=== PATIENT | female | born 2000 | race Caucasian/White ===

== ENCOUNTER 2020-05-24 11:53 | Inpatient (IN) | payer OTHER, SELFPAY ==
[2020-05-24] VITALS (8 sets, daily range): BP systolic 106–172; BP diastolic 70–93; PULSE 90–125; RESP 15–26; TEMP 36.7–36.8; O2SAT 98–100; BMI 33.6
--- NOTE | 2020-05-24 12:32 | CTR_ITS ---
PROCEDURE INFORMATION: Exam: CT Abdomen And Pelvis With Contrast Exam date and time: 05/24/2020 2:25 PM Age: 19 years old Clinical indication: Nausea; Abdominal pain; Patient HX: C/O epigastric pain w diarrhea HX of ulcers; Additional info: Rectal bleeding, epigastric pain, history of bleeding ulcer TECHNIQUE: Imaging protocol: Computed tomography of the abdomen and pelvis with intravenous contrast. Radiation optimization: All CT scans at this facility use at least one of these dose optimization techniques: automated exposure control; mA and/or kV adjustment per patient size (includes targeted exams where dose is matched to clinical indication); or iterative reconstruction. Contrast material: OMNI 300; Contrast volume: 95 ml; Contrast route: INTRAVENOUS (IV); COMPARISON: No relevant prior studies available. RADIATION DOSE METRICS: Total DLP (mGy-cm): 1355.53 FINDINGS: Lungs: There is mild basilar ground-glass opacity compatible with mild pneumonitis versus atelectasis. No lobar consolidation. Liver: There is a diffuse decrease in hepatic parenchymal density, consistent with fatty infiltration. Gallbladder and bile ducts: Normal. No calcified stones. No ductal dilation. Pancreas: Normal. No ductal dilation. Spleen: Normal. No splenomegaly. Adrenals: Normal. No mass. Kidneys and ureters: There is no evidence of hydronephrosis. There is no evidence of renal calcifications. Stomach and bowel: The stomach is mostly collapsed in the wall appears diffusely thickened compatible with lack of distension. No discrete gastric mass, wall thickening or ulceration is identified. There is no evidence of intestinal perforation or obstruction. The wall of the distal colon is thickened but collapsed. This appearance may reflect lack of distention however mild colitis cannot be excluded. The loops of small bowel have an appropriate appearance. Appendix: A normal appendix is identified. Intraperitoneal space: Unremarkable. No free air. No significant fluid collection. Vasculature: Unremarkable.No abdominal aortic aneurysm. Lymph nodes: Unremarkable.No enlarged lymph nodes. Bladder: There is nonspecific bladder wall thickening. This may be related to incomplete distention. Reproductive: Unremarkable as visualized. Bones/joints: Unremarkable. No acute fracture. Soft tissues: Unremarkable. CT/CT abdomen pelvis w con* [id number] IMPRESSION: The wall of the distal colon is thickened but collapsed. This appearance may reflect lack of distention however mild colitis cannot be excluded. No focal gastric wall thickening, gastritis or findings of a gastric ulcer. Radiation Dose CTDIVOL = (mGy): DLP = 1355.53 (mGy-cm)
--- NOTE | 2020-05-24 12:39 | W.ED.NAVMDI ---
HPI - Nausea/Vomiting/Diarrhea General: Chief complaint: Nausea/Vomiting/Diarrhea Stated complaint: bloody stool/abd cramp Time Seen by Provider: 05/24/20 12:05 Source: patient Mode of arrival: ambulatory Limitations: no limitations History of Present Illness: MD elicited complaint: nausea, diarrhea and abdominal pain Onset (ago): hour(s) (8) Description of diarrhea: blood Associated nausea: Yes Associated abdominal pain: Yes Location of pain: Epigastric Pain consistency: constant Severity: severe Quality: stabbing Exacerbating factors: none Relieving factors: none Associated symtoms: Reports dizziness, fatigue and nausea; Denies altered mental status, anxiety, bloating, change in vision, chest pain, cough, diaphoresis, decreased urine output, dysuria, epistaxis, fecal incontinence, fevers/chills, headache(s), anorexia, malaise, myalgias, numbness, palpitations, rash, short of breath, syncope, tenesmus, tinnitus or weakness Review of Systems General: Reports: 10 or more systems reviewed and unremarkable except in HPI and below Const: Reports: fatigue; Denies: malaise or diaphoresis Eyes: Denies: change in vision ENMT: Denies: tinnitus or epistaxis Card: Denies: chest pain, palpitations or syncope Resp: Denies: dyspnea, productive cough or non-productive cough GI: Reports: nausea; Denies: bloating or fecal incontinence : Denies: dysuria Musc: Denies: neck pain, back pain or extremity swelling Skin/Breast: Denies: rash, pruritus or erythema Neuro: Reports: dizziness; Denies: headache(s), numbness in extremities, weakness in extremities or sensory changes Psych: Denies: anxiety Endo: Denies: polyuria, polydipsia or tired all the time PFS ED PFSH: Medical History (Updated 05/24/20 @ 16:38 by Treasure Villalpando MD, [facility] [place]) History of peptic ulcer disease Surgical History (Updated 05/24/20 @ 16:38 by Hakeem Goodson MD) History of esophagogastroduodenoscopy (EGD) History of tonsillectomy Family History (Updated 05/24/20 @ 16:38 by Hakeem Goodson MD) Mother Peptic ulcer disease Female Reproductive History: Date of last menstrual period: 05/10/20 Physical Exam Const: COMMON NORMALS: no acute distress, average body habitus, patient oriented x3, no limitations, healthy appearing, alert and well nourished EXAM LIMITATIONS: no altered mental status HENMT: COMMON NORMALS: normocephalic, atraumatic and moist oral mucous membranes HEAD & SCALP: normocephalic and atraumatic Neck/C-Spine: COMMON NORMALS: no meningeal signs and no JVD Resp: COMMON NORMALS: normal respiratory effort, No retractions, No use of accessory muscles, clear to auscultation bilaterally and percussion normal AUSCULTATION: clear to auscultation bilaterally PERCUSSION: percussion normal Cardio: COMMON NORMALS: no JVD, regular rate, regular rhythm, S1 normal heart sound present, S2 normal heart sound present, No gallops present (Cardio), No clicks present (Cardio), No murmurs present (Cardio), No rub (Cardio) and Peripheral pulses 2+ throughout RATE: regular rate RHYTHM: regular rhythm HEART SOUNDS: S1 normal heart sound present and S2 normal heart sound present PERIPHERAL PULSES: Peripheral pulses 2+ throughout GI: COMMON NORMALS: Normal to inspection, nondistended, normoactive bowel sounds present, Soft to palpation, non-tender, No hepatosplenomegaly present, no masses and no bruits PALPATION: Yes Soft to palpation, Yes Tenderness to palpation present (GI) (epigastric) and Yes No hepatosplenomegaly present Neuro: COMMON NORMALS: patient oriented x3 SENSORIUM/ORIENTATION: Yes alert MENINGEAL SIGNS: Yes no meningeal signs Skin: COMMON NORMALS: no rashes or lesions noted, no wounds, turgor normal, no jaundice, no petechiae and no mottling GENERAL SKIN EXAM: no rashes or lesions noted and turgor normal Course ED course: 19-year-old female patient who present with rectal bleeding. She was given a dose of IV Protonix and some morphine which relieved her pain. Rectal exam showed altered blood on the gloved finger. She is tachycardic in the 120s and with any exertion she jumps up to the 140s. Hemoglobin is normal but I think it safer for her to be admitted overnight and her hemoglobin trended. Reevaluation(s): Reevaluation #1: Discussed her lab and imaging findings with her. Explained that her hemoglobin is normal, CT scan does not show anything acute, however she is significantly tachycardic and I am concerned about that. I would not like to discharge her with the amount of tachycardia she has. Would like to admit her and trend her hemoglobin. She voiced understanding and is in agreement with the plan. Time: 15:50 Consultations: Consultation #1: Dr. Pinto, physician who had scoped her in the past when she had stomach ulcers. Since her hemoglobin is stable she can either be admitted and observed or discharge and follow-up on Tuesday. If she is admitted, even though he is not network operations specialist, he is happy to scope her if there is an urgent need to. Time: 15:55 Consultation #2: Discussed with Dr. Goodson, hospitalist. He kindly accepted the patient to his service. Time: 15:59 Vital Signs: Vital signs: Vital Signs Temperature 98.0 F 05/24/20 11:58 Pulse Rate 124 H 05/24/20 15:30 Respiratory Rate 17 05/24/20 15:30 Blood Pressure 172/92 05/24/20 15:30 Pulse Oximetry 98 05/24/20 14:07 MDM - Nausea/Vomiting/Diarrhea MDM Narrative: Medical decision making narrative: 19-year-old female with GI bleeding. She has a history of bleeding stomach ulcers and has had to have an upper GI endoscopy to fix it. She has epigastric pain and melena stools. She is significantly tachycardic and so she is admitted to trend her hemoglobin since her initial hemoglobin was normal. Medical Records: Attestation: I reviewed the patient's medical records. Lab Data: Attestation: I reviewed the patient's lab results. Labs: Lab Results 05/24/20 05/24/20 05/24/20 Range/Units 12:45 12:45 12:45 WBC 16.1 H (4.5-13.0) 10^3/ uL RBC 3.92 L (4.1-5.3) 10^6/u L Hgb 12.2 (11.5-15.3) g/dL Hct 37.8 (37.0-47.0) % MCV 96.4 (81-99) fL MCH 31.1 (28.0-34.0) pg MCHC 32.3 (30.0-36.0) g/dL RDW 12.9 (12.1-15.1) % Plt Count 271 (130-400) 10^3/c mm MPV 9.9 (7.4-10.4) fL Neut % (Auto) 85.2 % Lymph % (Auto) 9.9 % [place] % (Auto) 3.7 % Eos % (Auto) 0.3 % Baso % (Auto) 0.3 % Neut # (Auto) 13.72 H (1.8-8.0) 10^3/u L Lymph # (Auto) 1.6 (1.5-6.5) 10^3/u L [place] # (Auto) 0.6 (0.2-0.9) 10^3/u L Eos # (Auto) 0.1 (0.0-0.8) 10^3/u L Baso # (Auto) 0.1 (0.0-0.1) 10^3/u L Nucleated RBC % (a uto) 0 % Nucleated RBCs # 0.0 /100WBC PT 14.00 (12.1-14.9) SECO NDS INR 1.05 (0.8-1.2) Sodium 136 (136-145) mmol/L Potassium 4.8 (3.5-5.1) mmol/L Chloride 105 (98-107) mmol/L Carbon Dioxide 25 (22-29) mmol/L Anion Gap 10.8 (5-19) BUN 18 (6-20) mg/dL Creatinine 0.7 (0.5-0.9) mg/dL GFR Calculation 106.7 (90-130) mL/min Glucose 111 (65-115) mg/dL Calculated Osmolal ity 279 L (285-295) mOsm/k g Lactate (0.5-2.2) mmol/L Calcium 8.7 (8.5-10.5) mg/dL Total Bilirubin 0.2 (0.15-1.2) mg/dL AST 15 (0-32) U/L ALT 17 (0-33) U/L Alkaline Phosphata se 80 (35-105) IU/L C-Reactive Protein 8.8 H (0.0-4.9) mg/L Total Protein 6.7 (6.6-8.7) g/dL Albumin 4.1 (3.5-5.2) g/dL Globulin 2.6 (1.3-4.6) g/dL Lipase 11 L (13-60) U/L HCG, Qual (Negative) Blood Type Rho(D) Type Antibody Screen 05/24/20 05/24/20 05/24/20 Range/Units 12:45 12:45 12:45 WBC (4.5-13.0) 10^3/ uL RBC (4.1-5.3) 10^6/u L Hgb (11.5-15.3) g/dL Hct (37.0-47.0) % MCV (81-99) fL MCH (28.0-34.0) pg MCHC (30.0-36.0) g/dL RDW (12.1-15.1) % Plt Count (130-400) 10^3/c mm MPV (7.4-10.4) fL Neut % (Auto) % Lymph % (Auto) % King[place] % (Auto) % Eos % (Auto) % Baso % (Auto) % Neut # (Auto) (1.8-8.0) 10^3/u L Lymph # (Auto) (1.5-6.5) 10^3/u L Kingman # (Auto) (0.2-0.9) 10^3/u L Eos # (Auto) (0.0-0.8) 10^3/u L Baso # (Auto) (0.0-0.1) 10^3/u L Nucleated RBC % (a uto) % Nucleated RBCs # /100WBC PT (12.1-14.9) SECO NDS INR (0.8-1.2) Sodium (136-145) mmol/L Potassium (3.5-5.1) mmol/L Chloride (98-107) mmol/L Carbon Dioxide (22-29) mmol/L Anion Gap (5-19) BUN (6-20) mg/dL Creatinine (0.5-0.9) mg/dL GFR Calculation (90-130) mL/min Glucose (65-115) mg/dL Calculated Osmolal ity (285-295) mOsm/k g Lactate 1.3 (0.5-2.2) mmol/L Calcium (8.5-10.5) mg/dL Total Bilirubin (0.15-1.2) mg/dL AST (0-32) U/L ALT (0-33) U/L Alkaline Phosphata se (35-105) IU/L C-Reactive Protein (0.0-4.9) mg/L Total Protein (6.6-8.7) g/dL Albumin (3.5-5.2) g/dL Globulin (1.3-4.6) g/dL Lipase (13-60) U/L HCG, Qual Negative (Negative) Blood Type O Positive Rho(D) Type Positive Antibody Screen Negative Imaging Data^: CT Abd/Pel: Radiologist's impression: [place] [address] CT Scan Report Signed Patient: Araceli Escobar #: [id number] : 2000Acct#:[id number] Age/Sex: 19 / FADM Date: 05/24/20 Loc: ERRoom/Bed: Attending Dr: Ordering Provider/Ordering MD: Treasure Villalpando MD, [facility] [place] Date of Service: 05/24/20 Procedure(s): CT abdomen pelvis w con* [id number] Accession Number(s): [id number] Report Number: [id number] PROCEDURE INFORMATION: Exam: CT Abdomen And Pelvis With Contrast Exam date and time: 05/24/2020 2:25 PM Age: 19 years old Clinical indication: Nausea; Abdominal pain; Patient HX: C/O epigastric pain w diarrhea HX of ulcers; Additional info: Rectal bleeding, epigastric pain, history of bleeding ulcer TECHNIQUE: Imaging protocol: Computed tomography of the abdomen and pelvis with intravenous contrast. Radiation optimization: All CT scans at this facility use at least one of these dose optimization techniques: automated exposure control; mA and/or kV adjustment per patient size (includes targeted exams where dose is matched to clinical indication); or iterative reconstruction. Contrast material: OMNI 300; Contrast volume: 95 ml; Contrast route: INTRAVENOUS (IV); COMPARISON: No relevant prior studies available. RADIATION DOSE METRICS: Total DLP (mGy-cm): 1355.53 FINDINGS: Lungs: There is mild basilar ground-glass opacity compatible with mild pneumonitis versus atelectasis. No lobar consolidation. Liver: There is a diffuse decrease in hepatic parenchymal density, consistent with fatty infiltration. Gallbladder and bile ducts: Normal. No calcified stones. No ductal dilation. Pancreas: Normal. No ductal dilation. Spleen: Normal. No splenomegaly. Adrenals: Normal. No mass. Kidneys and ureters: There is no evidence of hydronephrosis. There is no evidence of renal calcifications. Stomach and bowel: The stomach is mostly collapsed in the wall appears diffusely thickened compatible with lack of distension. No discrete gastric mass, wall thickening or ulceration is identified. There is no evidence of intestinal perforation or obstruction. The wall of the distal colon is thickened but collapsed. This appearance may reflect lack of distention however mild colitis cannot be excluded. The loops of small bowel have an appropriate appearance. Appendix: A normal appendix is identified. Intraperitoneal space: Unremarkable. No free air. No significant fluid collection. Vasculature: Unremarkable.No abdominal aortic aneurysm. Lymph nodes: Unremarkable.No enlarged lymph nodes. Bladder: There is nonspecific bladder wall thickening. This may be related to incomplete distention. Reproductive: Unremarkable as visualized. Bones/joints: Unremarkable. No acute fracture. Soft tissues: Unremarkable. CT/CT abdomen pelvis w con* [id number] IMPRESSION: The wall of the distal colon is thickened but collapsed. This appearance may reflect lack of distention however mild colitis cannot be excluded. No focal gastric wall thickening, gastritis or findings of a gastric ulcer. Radiation Dose CTDIVOL = (mGy): DLP = 1355.53 (mGy-cm) Dictated By:Rachel Almeida Signed By:Fiorella Almeida Date/Time:05/24/20 150 DD/ 1503 Discharge Plan Discharge Patient Disposition: Placed in Observation Clinical Impression: Acute GI bleeding Condition: Stable Prescriptions: No Action No Known Home Medications RF: 0 Referrals: Karan,KACY, GUEST RELATIONS RECEPTIONIST [Primary Care Provider] - Coding Level of Care Code ED Industrial Hygiene Technician for Chg Fwd Exam Detailed
[2020-05-24] MEDS: morphine 4 mg/mL SDV 1 mL IVP (12:54)
[2020-05-24] MEDS: pantoprazole 40 mg SDV IVP ×2 (12:55→18:21)
[2020-05-24 13:01] LABS: Basophils # 0.1 10^3/uL (0.0-0.1); Basophils % 0.3 %; Eosinophils # 0.1 10^3/uL (0.0-0.8); Eosinophils % 0.3 %; Hematocrit 37.8 % (37.0-47.0); Hemoglobin 12.2 g/dL (11.5-15.3); Lymphocytes # 1.6 10^3/uL (1.5-6.5); Lymphocytes % 9.9 %; Mean Corpuscular HGB Conc 32.3 g/dL (30.0-36.0); Mean Corpuscular Hemoglobin 31.1 pg (28.0-34.0); Mean Corpuscular Volume 96.4 fL (81-99); Mean Platelet Volume 9.9 fL (7.4-10.4); Monocytes # 0.6 10^3/uL (0.2-0.9); Monocytes % 3.7 %; Neutrophils # 13.72 10^3/uL (1.8-8.0); Neutrophils % 85.2 %; Nucleated Red Blood Cells % 0 %; Platelet Count 271 10^3/cmm (130-400); Red Blood Count 3.92 10^6/uL (4.1-5.3); Red Cell Distribution Width 12.9 % (12.1-15.1); White Blood Count 16.1 10^3/uL (4.5-13.0)
[2020-05-24 13:12] LABS: INR 1.05 (0.8-1.2)
[2020-05-24 13:19] LABS: Alanine Aminotransferase 17 U/L (0-33); Albumin Level 4.1 g/dL (3.5-5.2); Alkaline Phosphatase 80 IU/L (35-105); Anion Gap 10.8 (5-19); Aspartate Amino Transferase 15 U/L (0-32); Blood Urea Nitrogen 18 mg/dL (6-20); C Reactive Protein 8.8 mg/L (0.0-4.9); Calcium 8.7 mg/dL (8.5-10.5); Carbon Dioxide 25 mmol/L (22-29); Chloride 105 mmol/L (98-107); Globulin 2.6 g/dL (1.3-4.6); Glomerular Filtration Rate 106.7 mL/min (90-130); Glucose 111 mg/dL (65-115); Lipase 11 U/L (13-60); Osmolality Calculated 279 mOsm/kg (285-295); Potassium 4.8 mmol/L (3.5-5.1); Sodium 136 mmol/L (136-145); Total Bilirubin 0.2 mg/dL (0.15-1.2); Total Protein 6.7 g/dL (6.6-8.7)
[2020-05-24 13:20] LABS: Lactate (Lactic Acid level) 1.3 mmol/L (0.5-2.2)
[2020-05-24] MEDS: sodium chloride 0.9% 1,000 ML 999 ML IV (14:06)
[2020-05-24 14:36] LABS: HCG, Serum Qual Negative (Negative)
[2020-05-24] MEDS: iohexol 300 mg/mL 100 mL Btl IV (14:45)
--- NOTE | 2020-05-24 16:32 | PM.HP ---
Providers/Chief Complaint Primary Care Provider: NEIL Williamson Chief Complaint: bloody stool/abd cramp History of Present Illness Zenia Escobar is a 19 year old female with a past medical history of peptic ulcer disease status post EGD, and blood transfusion who presents [facility] due to bloody and black stools. Patient tells me that when she was 16 years old, she had an episode of bloody and black stools, she presented to [facility], she said she almost , she required blood, she had an EGD which showed a gastric ulcer, which was clipped or injected as per patient, she did fine, discharged home, she saw Dr. baird when she was in the hospital. Since then she has moved to [place], she has been doing well, no issues, she recently moved back to [place]. Stated that nothing out of the ordinary for the last few days, states that she has intolerance to spicy foods, no fevers, chills, no lightheaded, dizziness. This morning, patient had episode of bloody and black stools, blood was in the toilet bowl, and the stools, and with wiping, she also had dark tarry looking stools. Patient states that she has had 8 episodes of stool, last episode was a few hours ago, denies lightheadedness, dizziness, denies feeling nauseous, does have some epigastric tenderness and pain. Upon arrival to the emergency room her blood pressure was 129/93, she is had sinus tachycardia heart rates in the high 120s, hemoglobin is 12.1, no bloody or black stool while in the ER, she was examined by the ER physician and I was told that she had gross melena on rectal exam. Hospitalist team was called for admitting. Review of Systems Const: Denies: fever(s), chills, fatigue or malaise Eyes: Denies: change in vision or blurry vision ENMT: Denies: nasal congestion Resp: Denies: dyspnea, productive cough, non-productive cough or wheezing GI: Reports: abdominal pain, hematochezia and melena; Denies: nausea, vomiting, hematemesis, diarrhea or constipation : Denies: flank pain, dysuria or urinary frequency Musc: Denies: neck pain or back pain Skin/Breast: Denies: rash Neuro: Denies: headache(s), dizziness or vertigo Psych: Denies: anxiety or depression Endo: Denies: polyuria or polydipsia Medications/Allergies Home Medications Medication Instructions Recorded Confirmed Last Taken Type No Known Home Medications 05/24/20 05/24/20 Unknown History Allergies Allergy/AdvReac Type Severity Reaction Status Date / Time No Known Allergies Allergy Verified 05/24/20 12:04 PFSH Acute PFSH: Medical History (Updated 05/24/20 @ 16:41 by Hakeem Goodson MD) History of peptic ulcer disease Surgical History (Updated 05/24/20 @ 16:38 by Hakeem Goodson MD) History of esophagogastroduodenoscopy (EGD) History of tonsillectomy Family History (Updated 05/24/20 @ 16:38 by Hakeem Goodson MD) Mother Peptic ulcer disease Social History (Updated 05/24/20 @ 16:38 by Hakeem Goodson MD) Smoking and tobacco status: never smoked Second hand smoke exposure: No Alcohol intake: never Substance/Drug Use: never Female Reproductive History: Date of last menstrual period: 05/10/20 Vitals/I&O/Wt Last Vital Signs Temp 98.0 F 05/24/20 11:58 Pulse 124 H 05/24/20 15:30 Resp 17 05/24/20 15:30 BP 172/92 05/24/20 15:30 Pulse Ox 98 05/24/20 14:07 Weight last 48 hrs Weight 86.183 kg Physical Exam Const: COMMON NORMALS: no acute distress and patient oriented x3 GENERAL APPEARANCE: cooperative and comfortable HENMT: COMMON NORMALS: normocephalic HEAD & SCALP: normocephalic Eye: COMMON NORMALS: Equal, round and reactive pupils present, EOMs intact bilaterally and no papilledema GENERAL EYE: appearance normal, both eyes and all related structures PUPIL: Yes Equal, round and reactive pupils present DIRECT OPHTHALMOSCOPY: Yes no papilledema Neck/C-Spine: COMMON NORMALS: full ROM, no lymphadenopathy, no JVD and Thyroid normal THYROID: Thyroid normal Lymph: LYMPHATIC: no lymphadenopathy noted Resp: COMMON NORMALS: normal respiratory effort, No retractions, No use of accessory muscles and clear to auscultation bilaterally AUSCULTATION: clear to auscultation bilaterally Cardio: COMMON NORMALS: no JVD, regular rhythm, S1 normal heart sound present, S2 normal heart sound present, No gallops present (Cardio), No clicks present (Cardio) and No murmurs present (Cardio) RATE: tachycardic RHYTHM: regular rhythm HEART SOUNDS: S1 normal heart sound present and S2 normal heart sound present GI: COMMON NORMALS: Normal to inspection, nondistended, normoactive bowel sounds present, Soft to palpation and No hepatosplenomegaly present PALPATION: Yes Soft to palpation, Yes Tenderness to palpation present (GI) (Epigastric tenderness) and Yes No hepatosplenomegaly present Extremity: COMMON NORMALS: normal to inspection, full ROM and no pedal edema Neuro: COMMON NORMALS: patient oriented x3, CN's II-XII intact bilaterally, moves all extremities and no focal motor deficits Psych: COMMON NORMALS: mental status grossly normal, Normal thought process present and cooperative THOUGHT PROCESS: Normal thought process present Data : 05/24/20 12:45 05/24/20 12:45 A&P Assessment and plan (1) Upper GI bleed: -History of peptic ulcer disease, diagnosed on EGD in 2017, received several transfusions during that hospitalization -Does not sound like she tested positive for H. pylori, but I am not sure if she was tested for H. pylori -Patient has a lot of risk factors for H. pylori -In addition given her family history of peptic ulcer disease, she does have risk factors for Fannie-Pereira syndrome -Hemoglobin 12.1, she is tachycardic heart rates in the 120s, has had 8 black bowel movements in the last 12 hours -I was told by Dr. Villalpando, that he is spoken to Dr. Pinto, who advised that there is no acute need for EGD, however patient were to worsen we can certainly recheck to Dr. Pinto for EGD Plan: -Admit to general medical floors -Telemetry monitoring -Vitals every 4 hours -Monitor hemoglobin every 4 hours -Monitor for bloody or black stools -Protonix 40 twice daily -Carafate 1 g twice daily -We will keep patient n.p.o. -Monitor closely -Stool H. pylori -Will consider empirically treating her for H. pylori if she does not have an EGD performed at this hospitalization -Fasting gastrin Status: Acute Additional A&P Information Full code Anticoagulation contraindicated due to concerns for GI bleed SCDs for DVT prophylaxis Attestations Medical Necessity Statement*: Patient requires hospitalization, outpatient with observation, for upper GI bleed Coding Level of Care Code Acute Supervisor [employer] for [place] Fwd Diagnoses Upper GI bleed K92.2
[2020-05-24 17:08] LABS: Hematocrit 33.7 % (37.0-47.0); Hemoglobin 10.8 g/dL (11.5-15.3)
[2020-05-24 17:50] LABS: Thyroid Stimulating Hormone 1.56 uIU/mL (0.27-4.20)
[2020-05-24] MEDS: dextrose 5%-sod chloride 0.45% 1,000 ML 75 ML IV (18:21)
[2020-05-24] MEDS: sucralfate 1 gm Tablet PO (18:21)
[2020-05-24 20:20] LABS: Hematocrit 33.5 % (37.0-47.0); Hemoglobin 10.5 g/dL (11.5-15.3)
[2020-05-25] VITALS (56 sets, daily range): BP systolic 91–153; BP diastolic 61–91; PULSE 87–172; RESP 12–26; TEMP 36.6–37.9; O2SAT 94–100
[2020-05-25] MEDS: ondansetron 2 mg/ML SDV 2 mL 4 MG IVP (00:53)
[2020-05-25 01:01] LABS: Hematocrit 28.6 % (37.0-47.0); Hemoglobin 9.1 g/dL (11.5-15.3)
--- NOTE | 2020-05-25 04:23 | PC.NURSE ---
HR HR up in 150-160's when got up to bathroom this am. Back into 90's with getting back to bed. Was asymptomatic and denied pain or nausea at this time. Has had no BM's this shift. Did c/o nausea X1 that was relieved with dose of IV Zofran. No vomiting. Remains NPO. IV infusing without difficulty.
[2020-05-25 04:28] LABS: Basophils % 0.3 %; Eosinophils # 0.1 10^3/uL (0.0-0.8); Eosinophils % 0.7 %; Hematocrit 29.7 % (37.0-47.0); Hemoglobin 9.5 g/dL (11.5-15.3); Lymphocytes # 3.3 10^3/uL (1.5-6.5); Lymphocytes % 25.6 %; Mean Corpuscular Hemoglobin 31.3 pg (28.0-34.0); Mean Corpuscular Volume 97.7 fL (81-99); Mean Platelet Volume 9.9 fL (7.4-10.4); Monocytes # 0.5 10^3/uL (0.2-0.9); Monocytes % 4.2 %; Neutrophils % 68.6 %; Nucleated Red Blood Cells % 0 %; Platelet Count 244 10^3/cmm (130-400); Red Blood Count 3.04 10^6/uL (4.1-5.3); Red Cell Distribution Width 13.1 % (12.1-15.1); White Blood Count 12.7 10^3/uL (4.5-13.0)
[2020-05-25 04:56] LABS: Alanine Aminotransferase 13 U/L (0-33); Albumin Level 3.5 g/dL (3.5-5.2); Alkaline Phosphatase 62 IU/L (35-105); Anion Gap 11.9 (5-19); Aspartate Amino Transferase 11 U/L (0-32); Blood Urea Nitrogen 22 mg/dL (6-20); Calcium 7.9 mg/dL (8.5-10.5); Carbon Dioxide 25 mmol/L (22-29); Chloride 105 mmol/L (98-107); Globulin 2.2 g/dL (1.3-4.6); Glomerular Filtration Rate 127.5 mL/min (90-130); Glucose 112 mg/dL (65-115); Magnesium 1.8 mg/dL (1.7-2.3); Osmolality Calculated 283 mOsm/kg (285-295); Phosphorus 3.3 mg/dL (2.5-4.5); Potassium 3.9 mmol/L (3.5-5.1); Sodium 138 mmol/L (136-145); Total Bilirubin 0.3 mg/dL (0.15-1.2); Total Protein 5.7 g/dL (6.6-8.7)
[2020-05-25] MEDS: sucralfate 1 gm Tablet PO ×2 (08:12→17:58)
[2020-05-25] MEDS: pantoprazole 40 mg SDV IVP ×2 (08:12→17:58)
[2020-05-25] MEDS: dextrose 5%-sod chloride 0.45% 1,000 ML 75 ML IV (08:13)
[2020-05-25 09:05] LABS: Hematocrit 26.6 % (37.0-47.0); Hemoglobin 8.5 g/dL (11.5-15.3)
[2020-05-25 11:05] LABS: Ferritin 77 ng/mL (15-150); Iron 186 ug/dL (37-145)
--- NOTE | 2020-05-25 12:09 | PM.PN ---
Subjective Subjective: Interval history: This morning patient was seen, she was able to take a shower, does report dizziness with ambulation, she did have a bowel movement this morning, a small bowel movement, it was bloody, no nausea, no vomiting, her hemoglobin has decreased to 8.5, heart rates have decreased to 104, remains normotensive Vitals/I&O/Wt Last Vital Signs Temp 98.8 F 05/25/20 07:13 Pulse 104 H 05/25/20 07:13 Resp 18 05/25/20 07:13 BP 117/76 05/25/20 07:13 Pulse Ox 100 05/25/20 07:13 05/24/20 05/25/20 05/25/20 22:59 06:59 14:59 Intake Total 0 / 0 0 / 0 1000 / 1000 Output Total 300 / 300 700 / 1000 200 / 200 Balance -300 / -300 -700 / -1000 800 / 800 Weight last 48 hrs Weight 86.183 kg Physical Exam Const: COMMON NORMALS: no acute distress and patient oriented x3 HENMT: COMMON NORMALS: normocephalic HEAD & SCALP: normocephalic Neck/C-Spine: COMMON NORMALS: no JVD Resp: COMMON NORMALS: normal respiratory effort, No retractions, No use of accessory muscles and clear to auscultation bilaterally AUSCULTATION: clear to auscultation bilaterally Cardio: COMMON NORMALS: no JVD, regular rate, regular rhythm, S1 normal heart sound present and S2 normal heart sound present RATE: regular rate RHYTHM: regular rhythm HEART SOUNDS: S1 normal heart sound present and S2 normal heart sound present GI: COMMON NORMALS: Normal to inspection, nondistended, normoactive bowel sounds present, Soft to palpation, non-tender, No hepatosplenomegaly present, no masses and no bruits PALPATION: Yes Soft to palpation and Yes No hepatosplenomegaly present Extremity: COMMON NORMALS: capillary refill normal, no clubbing, cyanosis or edema, no calf tenderness and no pedal edema Neuro: COMMON NORMALS: patient oriented x3 Psych: COMMON NORMALS: mental status grossly normal Data : 05/25/20 08:26 05/25/20 04:13 A&P Assessment and plan (1) Upper GI bleed: -History of peptic ulcer disease, diagnosed on EGD in 2017, received several transfusions during that hospitalization -Does not sound like she tested positive for H. pylori, but I am not sure if she was tested for H. pylori -Patient has a lot of risk factors for H. pylori -In addition given her family history of peptic ulcer disease, she does have risk factors for Fannie-Pereira syndrome -Hemoglobin 8.5, still slightly tachycardic, normotensive, reports lightheadedness, last bowel movement was this morning, small blood bloody BM -I spoke to Dr. Pinto, agreed to take the patient for EGD tomorrow Plan: -Admit to general medical floors -Telemetry monitoring -Vitals every 4 hours -Monitor hemoglobin every 4 hours, transfuse if hemoglobin less than 7 -Monitor for bloody or black stools -Protonix 40 twice daily -Carafate 1 g twice daily -We will keep patient n.p.o. -Plan to perform EGD tomorrow -Monitor closely -Stool H. pylori -Will consider empirically treating her for H. pylori if she does not have an EGD performed at this hospitalization -Fasting gastrin Status: Acute Additional A&P Information Full code Anticoagulation contraindicated due to concerns for GI bleed SCDs for DVT prophylaxis Attestations Medical Necessity Statement*: Patient requires hospitalization for upper GI bleed, anemia Coding Level of Care Code Acute Data Control Clerk Supervisor for mark Fwd Diagnoses Upper GI bleed K92.2
[2020-05-25 12:29] LABS: Hematocrit 28.2 % (37.0-47.0)
[2020-05-25] MEDS: sodium chloride 0.9% 500 ML 999 ML IV (15:46)
[2020-05-25] MEDS: metoprolol tartrate 1 mg/1 mL SDV 5 mL 5 MG IV (15:47)
[2020-05-25 16:00] LABS: Hemoglobin 9.2 g/dL (11.5-15.3)
--- NOTE | 2020-05-25 17:21 | PC.NURSE ---
1620 to ICU Patient to ICU at 1620 via bed, AAOx4, visitor at bedside, vitals wnl.
[2020-05-25] MEDS: D5-NS 0.45% + KCL 20 mEq 20 MEQ/1,000 ML BAG 100 MEQ IV (17:43)
--- NOTE | 2020-05-25 18:38 | PC.NURSE ---
Blood reaction Patient's 1st unit of blood started, temp of 98.1 prior to infusion. Temp 100.3 at 1835. Infusion stopped, sent to lab. NS already running. Will give 25mg IVP benadryl STAT, 1000mg Tylenol PO STAT.
[2020-05-25] MEDS: diphenhydrAMINE 50 mg/mL SDV 1mL 25 MG IVP (18:48)
[2020-05-25] MEDS: acetaminophen 500 mg Tablet 1000 MG PO (18:48)
--- NOTE | 2020-05-25 21:14 | PC.NURSE ---
Pretransfusion vital signs.
[2020-05-26] VITALS (30 sets, daily range): BP systolic 94–138; BP diastolic 52–90; PULSE 88–110; RESP 11–96; TEMP 36.5–37.1; O2SAT 94–100
[2020-05-26 01:18] LABS: Hemoglobin 9.1 g/dL (11.5-15.3)
--- NOTE | 2020-05-26 01:57 | PC.NURSE ---
Notified Dr. James re: HGB levels s/p transfusion. No new orders received.
[2020-05-26] MEDS: D5-NS 0.45% + KCL 20 mEq 20 MEQ/1,000 ML BAG 100 MEQ IV ×2 (04:28→17:34)
[2020-05-26] MEDS: morphine 4 mg/mL SDV 1 mL IVP (05:19)
[2020-05-26 05:27] LABS: Basophils % 0.3 %; Eosinophils # 0.2 10^3/uL (0.0-0.8); Eosinophils % 2.3 %; Hematocrit 26.2 % (37.0-47.0); Hemoglobin 8.3 g/dL (11.5-15.3); Lymphocytes # 2.8 10^3/uL (1.5-6.5); Lymphocytes % 28.1 %; Mean Corpuscular HGB Conc 31.7 g/dL (30.0-36.0); Mean Corpuscular Hemoglobin 29.1 pg (28.0-34.0); Mean Corpuscular Volume 91.9 fL (81-99); Mean Platelet Volume 10.3 fL (7.4-10.4); Monocytes # 0.4 10^3/uL (0.2-0.9); Monocytes % 4.3 %; Neutrophils # 6.45 10^3/uL (1.8-8.0); Neutrophils % 64.4 %; Nucleated Red Blood Cells % 0 %; Platelet Count 186 10^3/cmm (130-400); Red Blood Count 2.85 10^6/uL (4.1-5.3); Red Cell Distribution Width 15.9 % (12.1-15.1)
[2020-05-26 05:52] LABS: Alanine Aminotransferase 9 U/L (0-33); Albumin Level 3.2 g/dL (3.5-5.2); Alkaline Phosphatase 53 IU/L (35-105); Anion Gap 9.8 (5-19); Aspartate Amino Transferase 12 U/L (0-32); Blood Urea Nitrogen 14 mg/dL (6-20); Calcium 8.1 mg/dL (8.5-10.5); Carbon Dioxide 25 mmol/L (22-29); Chloride 108 mmol/L (98-107); Globulin 1.6 g/dL (1.3-4.6); Glomerular Filtration Rate 106.7 mL/min (90-130); Glucose 111 mg/dL (65-115); Magnesium 1.9 mg/dL (1.7-2.3); Osmolality Calculated 285 mOsm/kg (285-295); Phosphorus 2.7 mg/dL (2.5-4.5); Potassium 3.8 mmol/L (3.5-5.1); Sodium 139 mmol/L (136-145); Total Bilirubin 0.5 mg/dL (0.15-1.2); Total Protein 4.8 g/dL (6.6-8.7)
[2020-05-26] MEDS: pantoprazole 40 mg SDV IVP ×2 (09:37→17:34)
--- NOTE | 2020-05-26 09:39 | PC.NURSE ---
EGD Patient consented to EDG, then to GI lab via stretcher. Patient AAOx4, vitals WNL, sinus tachy 113
[2020-05-26] MEDS: sodium chloride 0.9% 1,000 ML 30 ML IV (09:54)
--- NOTE | 2020-05-26 09:57 | ANES.PREANE2 ---
Pre-Anesthetic Assessment Pre-Anesthetic Assessment: Height/Weight: Height 1.6 m Weight 86.183 kg Temp Pulse Resp BP Pulse Ox 98.8 F 107 H 18 130/80 100 05/26/20 09:48 05/26/20 09:48 05/26/20 09:48 05/26/20 09:48 05/26/20 09:48 Preop Diagnosis: UGI bleed Proposed Procedure: Operation Date: 05/26/20 11:45 Proposed Procedures p EGD(Not Applicable) - Jose Angel Pinto MD Was Beta Nasim taken within 24 hours: N/A Last intake: Intake Last Liquid Date 05/25/20 Last Liquid Time 08:00 Last Solid Date 05/24/20 Last Solid Time 22:00 Social: Social History: No alcohol and No tobacco Exam: Pre-Anes Outpt Exam: alert, oriented x 3, clear to auscultation bilaterally and regular rate & rhythm Airway: Submandibular: WNL Cervical ROM: WNL MP: 2 Dentition: Full Pulmonary: Pulmonary: None reported CV/HEM: CV/HEM: Anemia : : None reported Hepatic: Hepatic: None reported GI: GI: GERD and PUD Comments: GI bleeding Metabolic: Metabolic: None reported Musc/skel: Musc/skel: None reported Neuropsych: Neuropsych: None reported Anesthetic Plan: ASA status: 2 Anesthesia: MAC Risk of > 500 ml blood loss (7ml/kg in children): No Meds/Allergies Current Medications: Current Medications Generic Name Dose Route Start Last Admin Trade Name Freq PRN Reason Stop Dose Admin Potassium Chloride /Dextrose/Sod Cl 20 meq in 1,000 m ls @ 100 mls/hr 05/25/20 17:00 05/26/20 04:28 D5-Ns 0.45% + Lg l 20 Meq IV 100 mls/hr .Q10H BALBIR Administration Sodium Chloride 1,000 mls @ 30 ml s/hr 05/26/20 09:30 05/26/20 09:54 Sodium Chloride 0.9% IV 30 mls/hr .Q24H BALBIR Administration Morphine Sulfate 4 mg 05/24/20 16:06 05/26/20 05:19 Morphine IVP 4 mg Q4H PRN Administration SEVERE PAIN Ondansetron HCl 4 mg 05/24/20 17:16 05/25/20 00:53 Zofran IVP 4 mg Q8H PRN Administration vomiting, or N/V if npo Pantoprazole Sodiu m 40 mg 05/24/20 18:00 05/26/20 09:37 Protonix IVP 40 mg BID BALBIR Administration Sucralfate 1 gm 05/24/20 18:00 05/26/20 09:39 Carafate PO Not Given BID BALBIR PFSH Anesthesia PFSH: Medical History (Updated 05/24/20 @ 16:41 by Hakeem Goodson MD) History of peptic ulcer disease Surgical History (Updated 05/24/20 @ 16:38 by Hakeem Goodson MD) History of esophagogastroduodenoscopy (EGD) History of tonsillectomy Family History (Updated 05/24/20 @ 16:38 by Hakeem Goodson MD) Mother Peptic ulcer disease Social History (Updated 05/24/20 @ 16:38 by Hakeem Goodson MD) Smoking and tobacco status: never smoked Second hand smoke exposure: No Alcohol intake: never Substance/Drug Use: never Female Reproductive History: Date of last menstrual period: 05/01/20 Data Anesthesia CBC & Chem 7: 05/26/20 05:08 05/26/20 05:08 Other Labs: Laboratory Results - last 48 hr 05/24/20 05/24/20 05/24/20 12:45 12:45 12:45 WBC 16.1 H RBC 3.92 L Hgb 12.2 Hct 37.8 MCV 96.4 MCH 31.1 MCHC 32.3 RDW 12.9 Plt Count 271 MPV 9.9 Neut % (Auto) 85.2 Lymph % (Auto) 9.9 Dubois % (Auto) 3.7 Eos % (Auto) 0.3 Baso % (Auto) 0.3 Reticulocyte % (Auto) Neut # (Auto) 13.72 H Lymph # (Auto) 1.6 Dubois # (Auto) 0.6 Eos # (Auto) 0.1 Baso # (Auto) 0.1 Nucleated RBC % (auto) 0 Nucleated RBCs # 0.0 PT 14.00 INR 1.05 Sodium 136 Potassium 4.8 Chloride 105 Carbon Dioxide 25 Anion Gap 10.8 BUN 18 Creatinine 0.7 GFR Calculation 106.7 Glucose 111 Calculated Osmolality 279 L Lactate Calcium 8.7 Phosphorus Magnesium Iron Ferritin Total Bilirubin 0.2 AST 15 ALT 17 Alkaline Phosphatase 80 C-Reactive Protein 8.8 H Total Protein 6.7 Albumin 4.1 Globulin 2.6 Lipase 11 L TSH HCG, Qual Blood Type Rho(D) Type Antibody Screen Crossmatch 05/24/20 05/24/20 05/24/20 12:45 12:45 12:45 WBC RBC Hgb Hct MCV MCH MCHC RDW Plt Count MPV Neut % (Auto) Lymph % (Auto) Dubois % (Auto) Eos % (Auto) Baso % (Auto) Reticulocyte % (Auto) Neut # (Auto) Lymph # (Auto) Dubois # (Auto) Eos # (Auto) Baso # (Auto) Nucleated RBC % (auto) Nucleated RBCs # PT INR Sodium Potassium Chloride Carbon Dioxide Anion Gap BUN Creatinine GFR Calculation Glucose Calculated Osmolality Lactate 1.3 Calcium Phosphorus Magnesium Iron Ferritin Total Bilirubin AST ALT Alkaline Phosphatase C-Reactive Protein Total Protein Albumin Globulin Lipase TSH HCG, Qual Negative Blood Type O Positive Rho(D) Type Positive Antibody Screen Negative Crossmatch See Detail 05/24/20 05/24/20 05/24/20 12:45 16:57 20:10 WBC RBC Hgb 10.8 L 10.5 L Hct 33.7 L 33.5 L MCV MCH MCHC RDW Plt Count MPV Neut % (Auto) Lymph % (Auto) Dubois % (Auto) Eos % (Auto) Baso % (Auto) Reticulocyte % (Auto) Neut # (Auto) Lymph # (Auto) Dubois # (Auto) Eos # (Auto) Baso # (Auto) Nucleated RBC % (auto) Nucleated RBCs # PT INR Sodium Potassium Chloride Carbon Dioxide Anion Gap BUN Creatinine GFR Calculation Glucose Calculated Osmolality Lactate Calcium Phosphorus Magnesium Iron Ferritin Total Bilirubin AST ALT Alkaline Phosphatase C-Reactive Protein Total Protein Albumin Globulin Lipase TSH 1.56 HCG, Qual Blood Type Rho(D) Type Antibody Screen Crossmatch 05/25/20 05/25/20 05/25/20 00:40 04:13 04:13 WBC 12.7 RBC 3.04 L Hgb 9.1 L 9.5 L Hct 28.6 L 29.7 L MCV 97.7 MCH 31.3 MCHC 32.0 RDW 13.1 Plt Count 244 MPV 9.9 Neut % (Auto) 68.6 Lymph % (Auto) 25.6 Dubois % (Auto) 4.2 Eos % (Auto) 0.7 Baso % (Auto) 0.3 Reticulocyte % (Auto) Neut # (Auto) 8.70 H Lymph # (Auto) 3.3 Dubois # (Auto) 0.5 Eos # (Auto) 0.1 Baso # (Auto) 0.0 Nucleated RBC % (auto) 0 Nucleated RBCs # 0.0 PT INR Sodium 138 Potassium 3.9 Chloride 105 Carbon Dioxide 25 Anion Gap 11.9 BUN 22 H Creatinine 0.6 GFR Calculation 127.5 Glucose 112 Calculated Osmolality 283 L Lactate Calcium 7.9 L Phosphorus 3.3 Magnesium 1.8 Iron Ferritin Total Bilirubin 0.3 AST 11 ALT 13 Alkaline Phosphatase 62 C-Reactive Protein Total Protein 5.7 L Albumin 3.5 Globulin 2.2 Lipase TSH HCG, Qual Blood Type Rho(D) Type Antibody Screen Crossmatch 05/25/20 05/25/20 05/25/20 04:13 04:13 08:26 WBC RBC Hgb 8.5 L Hct 26.6 L MCV MCH MCHC RDW Plt Count MPV Neut % (Auto) Lymph % (Auto) Dubois % (Auto) Eos % (Auto) Baso % (Auto) Reticulocyte % (Auto) Neut # (Auto) Lymph # (Auto) Dubois # (Auto) Eos # (Auto) Baso # (Auto) Nucleated RBC % (auto) Nucleated RBCs # PT INR Sodium Potassium Chloride Carbon Dioxide Anion Gap BUN Creatinine GFR Calculation Glucose Calculated Osmolality Lactate Calcium Phosphorus Magnesium Iron 186 H Ferritin 77 Total Bilirubin AST ALT Alkaline Phosphatase C-Reactive Protein Total Protein Albumin Globulin Lipase TSH HCG, Qual Blood Type Rho(D) Type Antibody Screen Crossmatch 05/25/20 05/25/20 05/26/20 12:20 15:46 00:59 WBC RBC Hgb 9.0 L 9.2 L 9.1 L Hct 28.2 L 29.0 L 29.0 L MCV MCH MCHC RDW Plt Count MPV Neut % (Auto) Lymph % (Auto) Dubois % (Auto) Eos % (Auto) Baso % (Auto) Reticulocyte % (Auto) 2.3800 Neut # (Auto) Lymph # (Auto) Dubois # (Auto) Eos # (Auto) Baso # (Auto) Nucleated RBC % (auto) Nucleated RBCs # PT INR Sodium Potassium Chloride Carbon Dioxide Anion Gap BUN Creatinine GFR Calculation Glucose Calculated Osmolality Lactate Calcium Phosphorus Magnesium Iron Ferritin Total Bilirubin AST ALT Alkaline Phosphatase C-Reactive Protein Total Protein Albumin Globulin Lipase TSH HCG, Qual Blood Type Rho(D) Type Antibody Screen Crossmatch 05/26/20 05/26/20 05:08 05:08 WBC 10.0 RBC 2.85 L Hgb 8.3 L Hct 26.2 L MCV 91.9 MCH 29.1 MCHC 31.7 RDW 15.9 H Plt Count 186 MPV 10.3 Neut % (Auto) 64.4 Lymph % (Auto) 28.1 Dubois % (Auto) 4.3 Eos % (Auto) 2.3 Baso % (Auto) 0.3 Reticulocyte % (Auto) Neut # (Auto) 6.45 Lymph # (Auto) 2.8 Dubois # (Auto) 0.4 Eos # (Auto) 0.2 Baso # (Auto) 0.0 Nucleated RBC % (auto) 0 Nucleated RBCs # 0.0 PT INR Sodium 139 Potassium 3.8 Chloride 108 H Carbon Dioxide 25 Anion Gap 9.8 BUN 14 Creatinine 0.7 GFR Calculation 106.7 Glucose 111 Calculated Osmolality 285 Lactate Calcium 8.1 L Phosphorus 2.7 Magnesium 1.9 Iron Ferritin Total Bilirubin 0.5 AST 12 ALT 9 Alkaline Phosphatase 53 C-Reactive Protein Total Protein 4.8 L Albumin 3.2 L Globulin 1.6 Lipase TSH HCG, Qual Blood Type Rho(D) Type Antibody Screen Crossmatch Cardiac Studies: No Data to Display
--- NOTE | 2020-05-26 10:07 | PM.CONSULT ---
Providers/Reason For Consult Consulting Physican/Specialty*: Internal medicine/endoscopy Reason for Consult*: Presumed upper GI bleed and anemia. Attending Physician: Katie Becker MD Primary Care Provider: NEIL Williamson History of Present Illness History of Present Illness Zenia Escobar is a 19 year old female who presented to the emergency department over the weekend. Tuesday but she began to have epigastric pain and nausea. Tuesday she began to have copious amounts of melanotic stool. She is familiar to me as she had a similar episode about 2 years ago where she presented to my office with tachycardia and ended up having a very low hemoglobin. She was evaluated in the emergency department and noted to have a hemoglobin of 12 at that time but was tachycardic. After hydration and equalization her hemoglobin dropped to 8.3. Her attending Dr. Goodson implored me to take a look in her stomach this morning, and I agree. She denies tobacco alcohol increased use of NSAIDs of late. After her previous gastric ulcer and anemia she took PPI therapy for about a year and was feeling fine until Tuesday. Review of Systems General: Reports: 10 or more systems reviewed and unremarkable except in HPI and below Meds/Allergies Home Medications and Allergies Home Medications Medication Instructions Recorded Confirmed Last Taken Type No Known Home Medications 05/24/20 05/24/20 Unknown History Allergies Allergy/AdvReac Type Severity Reaction Status Date / Time No Known Allergies Allergy Verified 05/24/20 12:04 Current Medications Current Medications Generic Name Dose Route Start Last Admin Trade Name Freq PRN Reason Stop Dose Admin Potassium Chloride/Dextrose/Sod Cl 20 meq in 1,000 mls @ 100 mls/hr 05/25/20 17:00 05/26/20 04:28 D5-Ns 0.45% + Kcl 20 Meq IV 100 mls/hr .Q10H BALBIR Administration Sodium Chloride 1,000 mls @ 30 mls/hr 05/26/20 09:30 05/26/20 09:54 Sodium Chloride 0.9% IV 30 mls/hr .Q24H BALBIR Administration Morphine Sulfate 4 mg 05/24/20 16:06 05/26/20 05:19 Morphine IVP 4 mg Q4H PRN Administration SEVERE PAIN Ondansetron HCl 4 mg 05/24/20 17:16 05/25/20 00:53 Zofran IVP 4 mg Q8H PRN Administration vomiting, or N/V if npo Pantoprazole Sodium 40 mg 05/24/20 18:00 05/26/20 09:37 Protonix IVP 40 mg BID BALBIR Administration Sucralfate 1 gm 05/24/20 18:00 05/26/20 09:39 Carafate PO Not Given BID BALBIR PFSH Acute PFSH: Medical History (Updated 05/24/20 @ 16:41 by Hakeem Goodson MD) History of peptic ulcer disease Surgical History (Updated 05/24/20 @ 16:38 by Hakeem Goodson MD) History of esophagogastroduodenoscopy (EGD) History of tonsillectomy Family History (Updated 05/24/20 @ 16:38 by Hakeem Goodson MD) Mother Peptic ulcer disease Social History (Updated 05/24/20 @ 16:38 by Hakeem Goodson MD) Smoking and tobacco status: never smoked Second hand smoke exposure: No Alcohol intake: never Substance/Drug Use: never Female Reproductive History: Date of last menstrual period: 05/01/20 Vitals/I&O/Wt Last Vital Signs Temp 98.8 F 05/26/20 09:48 Pulse 107 H 05/26/20 09:48 Resp 18 05/26/20 09:48 BP 130/80 05/26/20 09:48 Pulse Ox 100 05/26/20 09:48 05/25/20 05/26/20 05/26/20 22:59 06:59 14:59 Intake Total 150 / 1150 1350 / 2500 Output Total 200 / 700 300 / 1000 Balance -50 / 450 1050 / 1500 Weight last 48 hrs Weight 190 lb Physical Exam Neck/C-Spine: COMMON NORMALS: no JVD Resp: COMMON NORMALS: normal respiratory effort, No retractions, No use of accessory muscles, clear to auscultation bilaterally and percussion normal AUSCULTATION: clear to auscultation bilaterally PERCUSSION: percussion normal Cardio: COMMON NORMALS: no JVD, regular rate, regular rhythm, S1 normal heart sound present, S2 normal heart sound present, No gallops present (Cardio), No clicks present (Cardio), No murmurs present (Cardio), No rub (Cardio) and Peripheral pulses 2+ throughout RATE: regular rate and tachycardic (Her heart rate varies between 100-120) RHYTHM: regular rhythm HEART SOUNDS: S1 normal heart sound present and S2 normal heart sound present PERIPHERAL PULSES: Peripheral pulses 2+ throughout GI: COMMON NORMALS: Normal to inspection, nondistended, normoactive bowel sounds present and Soft to palpation; negative for non-tender (She has some vague slight tenderness in the epigastric region.) AUSCULTATION: Yes normoactive bowel sounds PALPATION: Yes Soft to palpation PERCUSSION: normal to percussion RECTAL EXAM: deferred A&P Assessment and plan (1) Upper GI bleed: Her presentation is suspicious for her previous presentation which was a peptic ulcer discovered some 2 years ago. We will proceed with upper endoscopy to make sure that nothing such as a Dula Shama lesion or the like exists. Her current PPI therapy is very aggressive and reasonable, but will probably be able to switch her to p.o. and send her home soon. Status: Acute Coding Level of Care Code Acute Electrode Cleaning Machine Operator for Chg Fwd Exam Expanded Problem Focused Diagnoses Upper GI bleed K92.2 Comment Please forward this chart to my lead bi developer Yelitza Interiano RN in my office.
--- NOTE | 2020-05-26 11:12 | PM.PN ---
Subjective Subjective: Interval history: patient in GI lab this morning after being tx to ICU yesetrday for tachycardia. resulst awaited. Hb at 8.3 this morning Medications: Reviewed: Yes Vitals/I&O/Wt Last Vital Signs Temp 98.8 F 05/26/20 09:48 Pulse 107 H 05/26/20 09:48 Resp 18 05/26/20 09:48 BP 130/80 05/26/20 09:48 Pulse Ox 100 05/26/20 09:48 05/25/20 05/26/20 05/26/20 22:59 06:59 14:59 Intake Total 150 / 1150 1350 / 2500 Output Total 200 / 700 300 / 1000 800 / 800 Balance -50 / 450 1050 / 1500 -800 / -800 Weight last 48 hrs Weight 86.183 kg Physical Exam Narrative: EXAM NARRATIVE: cURRENTLY IN gI LAB Data : 05/26/20 05:08 05/26/20 05:08 A&P Assessment and plan (1) Upper GI bleed: Status: Acute (2) History of peptic ulcer disease: Status: Acute (3) Acute GI bleeding: Status: Acute Additional A&P Information Continue protonix 40mg IvP q12h continue sucralfate awaiting results of UGIE this monring Attestations Medical Necessity Statement*: GI urmila osman Coding Level of Care Code Acute Retail Sales Professional for Kee Amos Diagnoses Upper GI bleed K92.2 History of peptic ulcer disease Z87.11 Acute GI bleeding K92.2
--- NOTE | 2020-05-26 11:46 | SUR.OPER ---
1ML of diluted epi injected into the boarder between the first and second part of the duodenum. 2 clips placed.
--- NOTE | 2020-05-26 11:48 | SUR.OPER ---
1mL diluted epi injected into the spaced between the first and second part of the duodenum
[2020-05-26 13:00] LABS: Glucose Point of Care 136 mg/dL (70-110)
[2020-05-26 13:24] LABS: Basophils % 0.3 %; Eosinophils # 0.2 10^3/uL (0.0-0.8); Eosinophils % 1.1 %; Hematocrit 25.1 % (37.0-47.0); Lymphocytes # 2.1 10^3/uL (1.5-6.5); Mean Corpuscular HGB Conc 31.9 g/dL (30.0-36.0); Mean Corpuscular Hemoglobin 29.7 pg (28.0-34.0); Mean Corpuscular Volume 93.3 fL (81-99); Mean Platelet Volume 10.4 fL (7.4-10.4); Monocytes # 0.5 10^3/uL (0.2-0.9); Monocytes % 3.5 %; Neutrophils # 12.17 10^3/uL (1.8-8.0); Neutrophils % 80.4 %; Nucleated Red Blood Cells % 0 %; Platelet Count 222 10^3/cmm (130-400); Red Blood Count 2.69 10^6/uL (4.1-5.3); Red Cell Distribution Width 16.3 % (12.1-15.1); White Blood Count 15.1 10^3/uL (4.5-13.0)
--- NOTE | 2020-05-26 15:42 | PC.NURSE ---
Mother Patient's mother, Nitesh, called wanting an update. Patient gives consent to give mother an update. Mother updated and would like a call if anything changes. Patient's and visitor will be leaving town soon and will not have a visitor. Cell number [phone]
[2020-05-26] MEDS: sucralfate 1 gm Tablet PO (17:34)
[2020-05-26] MEDS: ondansetron 2 mg/ML SDV 2 mL 4 MG IVP (17:34)
[2020-05-26 18:29] LABS: Hematocrit 22.2 % (37.0-47.0)
[2020-05-26] MEDS: acetaminophen 325 mg Tablet 650 MG PO (20:52)
[2020-05-26] MEDS: diphenhydrAMINE 50 mg/mL SDV 1mL 25 MG IVP (20:52)
[2020-05-27] VITALS (46 sets, daily range): BP systolic 79–153; BP diastolic 43–105; PULSE 77–123; RESP 14–27; TEMP 36.8–37.7; O2SAT 94–100
[2020-05-27] MEDS: diphenhydrAMINE 50 mg/mL SDV 1mL 25 MG IVP ×2 (00:09→01:07)
[2020-05-27] MEDS: acetaminophen 325 mg Tablet 650 MG PO (00:10)
[2020-05-27] MEDS: sodium chloride 0.9% (100 ml) 100 ML 15 ML (00:20)
--- NOTE | 2020-05-27 01:08 | PC.NURSE ---
Patient receiving second unit of PRBC. 15 minute vital signs stable, roughly 10 min later at approx. 0035 patient started to feel chills and her arms tingled . Transfusion stopped, NS infusing, Dr. Estevez notified, orders received (see MAR). Labs drawn, PRBC sent to lab.
[2020-05-27 03:29] LABS: Basophils % 0.2 %; Eosinophils # 0.1 10^3/uL (0.0-0.8); Eosinophils % 0.7 %; Hematocrit 25.9 % (37.0-47.0); Hemoglobin 8.2 g/dL (11.5-15.3); Lymphocytes # 1.4 10^3/uL (1.5-6.5); Lymphocytes % 11.3 %; Mean Corpuscular HGB Conc 31.7 g/dL (30.0-36.0); Mean Corpuscular Volume 91.5 fL (81-99); Mean Platelet Volume 10.4 fL (7.4-10.4); Monocytes # 0.2 10^3/uL (0.2-0.9); Monocytes % 1.9 %; Neutrophils # 10.39 10^3/uL (1.8-8.0); Neutrophils % 85.4 %; Nucleated Red Blood Cells % 0 %; Platelet Count 170 10^3/cmm (130-400); Red Blood Count 2.83 10^6/uL (4.1-5.3); Red Cell Distribution Width 15.7 % (12.1-15.1); White Blood Count 12.2 10^3/uL (4.5-13.0)
[2020-05-27 03:49] LABS: Alanine Aminotransferase 19 U/L (0-33); Albumin Level 3.4 g/dL (3.5-5.2); Alkaline Phosphatase 54 IU/L (35-105); Anion Gap 11.7 (5-19); Aspartate Amino Transferase 19 U/L (0-32); Blood Urea Nitrogen 12 mg/dL (6-20); Calcium 8.2 mg/dL (8.5-10.5); Carbon Dioxide 23 mmol/L (22-29); Chloride 109 mmol/L (98-107); Glomerular Filtration Rate 106.7 mL/min (90-130); Glucose 132 mg/dL (65-115); Magnesium 1.8 mg/dL (1.7-2.3); Osmolality Calculated 288 mOsm/kg (285-295); Phosphorus 2.6 mg/dL (2.5-4.5); Potassium 3.7 mmol/L (3.5-5.1); Sodium 140 mmol/L (136-145); Total Bilirubin 0.4 mg/dL (0.15-1.2); Total Protein 5.4 g/dL (6.6-8.7)
[2020-05-27] MEDS: pantoprazole 40 mg SDV IVP ×2 (08:35→18:03)
[2020-05-27] MEDS: sucralfate 1 gm Tablet PO ×2 (08:36→18:03)
--- NOTE | 2020-05-27 10:12 | PC.NURSE ---
Patient was up, and walked around unit with standby assistance without incident.
--- NOTE | 2020-05-27 10:41 | P.PN_ITS ---
Subjective Subjective: Interval history: Underwent endoscopy yesterday which showed evidence of bleeding duodenal ulcer which underwent clipping. Patient was transfused 2 units of blood yesterday after hemoglobin dropped to 7 and she was noted to be tachycardic in the 120s. She tolerated the first unit just fine, with the second unit she developed tingling in the arm and temperature of 99, fo r which it was discontinued. Premedication with Benadryl and Tylenol was given prior to each unit. This morning she is feeling well. She has been ambulating in the hallways without any complaints of dizziness palpitations chest pain. Last bowel movement was yesterday which was black and tarry. No bowel movement yet today. Medications: Reviewed: Yes Vitals/I&O/Wt Last Vital Signs Temp 98.3 F 05/27/20 07:30 Pulse 107 H 05/27/20 08:30 Resp 15 05/27/20 08:30 BP 138/70 05/27/20 08:30 Pulse Ox 96 05/27/20 08:30 05/26/20 05/27/20 05/27/20 22:59 06:59 14:59 Intake Total 350 / 1350 170 / 1520 Output Total 650 / 1450 325 / 325 Balance 350 / 550 -480 / 70 -325 / -325 Physical Exam Narrative: EXAM NARRATIVE: GEN: Awake, alert and oriented, no acute distress CVS: S1S2 N RS: CTA B/L Abd: Soft, nt/nd , bs+ REAL ESTATE ASSET MANAGER: no focal neuro deficits Data : 05/27/20 03:04 05/27/20 03:04 A&P Assessment and plan (1) Upper GI bleed: Status: Acute (2) History of peptic ulcer disease: Status: Acute (3) Acute GI bleeding: Status: Acute Additional A&P Information # Upper GI bleed : Is post endoscopy yesterday which showed that there was a single cratered acute appearing ulcer with actively pulsating and bleeding. Clipping was subsequently performed. Hemostasis was achieved. Hemoglobin drifted down to 7 yesterday along with concomitant tachycardia for w hich she received 2 units of blood transfusion. Second unit needed to be stopped early because of low-grade temp of 99.5 and tingling in the arm. This morning hemoglobin is at 8.2. Recheck at 1 PM today. No complaints of dizziness or weakness today. Remains slightly tachycardic with heart rate between 100-1 10, however no specific complaints. Continue protonix 40mg IvP q12h continue sucralfate Start clear liquid diet, advance as tolerate din the day monitor for robi, no BM today yet Attestations Medical Necessity Statement*: close monitoring of HB, start diet, bleeding duodenal ulcers Coding Level of Care Code Acute Drafter Detail for Chg Fwd Diagnoses Upper GI bleed K92.2 History of peptic ulcer disease Z87.11 Acute GI bleeding K92.2
[2020-05-27] MEDS: D5-NS 0.45% + KCL 20 mEq 20 MEQ/1,000 ML BAG 100 MEQ IV ×2 (11:38→20:43)
[2020-05-27 13:15] LABS: Hematocrit 26.1 % (37.0-47.0); Hemoglobin 8.6 g/dL (11.5-15.3)
--- NOTE | 2020-05-27 16:57 | PC.NURSE ---
Pt diet advanced to clear liquid diet at lunchtime. No obvious upset noted. Patient stated she had another BM that was dark and tarry, but otherwise felt fine. Dinner was advanced to a full liquid diet. Bowel sounds present, and no complaints of pain or issues noted.
--- NOTE | 2020-05-27 18:30 | PC.NURSE ---
Patient advanced to a soft diet tray for dinner. No obvious upset or complaints of pain by patient throughout day.
[2020-05-28] VITALS (12 sets, daily range): BP systolic 120–142; BP diastolic 75–91; PULSE 75–104; RESP 12–24; TEMP 36.6–36.7; O2SAT 95–97
[2020-05-28 03:32] LABS: Basophils % 0.2 %; Eosinophils % 0.1 %; Hematocrit 23.6 % (37.0-47.0); Hemoglobin 7.5 g/dL (11.5-15.3); Lymphocytes # 2.6 10^3/uL (1.5-6.5); Lymphocytes % 14.4 %; Mean Corpuscular HGB Conc 31.8 g/dL (30.0-36.0); Mean Corpuscular Hemoglobin 29.3 pg (28.0-34.0); Mean Corpuscular Volume 92.2 fL (81-99); Mean Platelet Volume 10.3 fL (7.4-10.4); Monocytes # 0.7 10^3/uL (0.2-0.9); Monocytes % 3.9 %; Neutrophils # 14.79 10^3/uL (1.8-8.0); Neutrophils % 80.8 %; Nucleated Red Blood Cells % 0 %; Platelet Count 221 10^3/cmm (130-400); Red Blood Count 2.56 10^6/uL (4.1-5.3); Red Cell Distribution Width 15.7 % (12.1-15.1); White Blood Count 18.3 10^3/uL (4.5-13.0)
[2020-05-28] MEDS: sucralfate 1 gm Tablet PO (08:03)
[2020-05-28] MEDS: pantoprazole 40 mg SDV IVP (08:03)
--- NOTE | 2020-05-28 09:29 | P.DS_ITS ---
Discharge Providers Date of Admission: 05/25/20 13:18 Date of Discharge: May 28, 2020 Attending Provider at Admission: Hakeem Goodson MD Attending Provider at Discharge: Katie Becker MD Primary Care Provider: NEIL Williamson Diagnoses at Discharge Discharge Diagnosis (1) Upper GI bleed: Status: Acute (2) History of peptic ulcer disease: Status: Acute (3) Acute GI bleeding: Status: Acute Reason for Visit Reason for Visit: bloody stool/abd cramp Hospital Course Discharge Summary: Zenia Escobar is a 19 year old female with a past medical history of peptic ulcer disease status post EGD, and blood transfusion who presents [facility] due to bloody and black stools. After hydration and equalization her hemoglobin dropped to 8.3. She had she underwent EGD eventually which showed that she had a bleeding duodenal ulcer. It was injected with epinephrine and also underwent clipping. Hemoglobin thereafter dipped to 7 for which she received 2 units of blood transfusion. At the time of discharge her hemoglobin is stabilized at 7.5. Last bowel movement was yesterday. There was a little black tarry, however significantly improved since presentation. She is clinically well-appearing. On May 27, T-max noted to be 99.9, however this was in the setting of receiving blood transfusion. Since then she has been afberile. On the day of discharge, her diet has been slowly advanced and she is tolerating a soft diet well at this present time. Ambulating the hallway without any dizziness, syncope, orthostatic changes. SHe is instructed to return in 2 days for a hemoglobin check and then follow-up with Dr. Pinto as an outpatient. Helicobacter antigen remains pending at this time. Will be followed up as an outpatient and therapy initiated if indicated. Physical Exam Narrative: EXAM NARRATIVE: GEN: Awake, alert and oriented, no acute distress CVS: S1S2 N RS: CTA B/L Abd: Soft, nt/nd , bs+ RESIDENCY PROGRAM COORDINATOR: no focal neuro deficits Discharge Data Data Completed and Pending: Completed Studies During Hospitalization Category Date Time Status CT abdomen pelvis w con* [id number] Stat Cat Scan 05/24/20 12:32 Completed Pending at discharge Category Date Time Status Helicobacter Pylo ri AG Stool Stat Lab 05/25/20 10:00 Received Miscellaneous Sadie t Routine Lab 05/25/20 04:13 Received Labs from last 24 hours 05/28/20 05/27/20 03:00 13:05 WBC 18.3 H RBC 2.56 L Hgb 7.5 L 8.6 L Hct 23.6 L 26.1 L MCV 92.2 MCH 29.3 MCHC 31.8 RDW 15.7 H Plt Count 221 MPV 10.3 Neut % (Auto) 80.8 Lymph % (Auto) 14.4 [place] % (Auto) 3.9 Eos % (Auto) 0.1 Baso % (Auto) 0.2 Neut # (Auto) 14.79 H Lymph # (Auto) 2.6 [place] # (Auto) 0.7 Eos # (Auto) 0.0 Baso # (Auto) 0.0 Nucleated RBC % (a uto) 0 Nucleated RBCs # 0.0 Vitals: Last Vital Signs Temp 97.8 F 05/28/20 07:30 Pulse 90 05/28/20 07:30 Resp 16 05/28/20 07:30 BP 120/75 05/28/20 07:30 Pulse Ox 95 05/28/20 07:30 Discharge Plan Discharge Patient Disposition: Home Condition: Stable Prescriptions: New Protonix 40 mg tablet,delayed release (DR/EC) 40 mg PO BID 30 Days Qty: 60 RF: 0 ferrous fumarate 325 mg (106 mg iron) tablet 325 mg PO DAILY Qty: 30 RF: 0 multivitamin Tablet 1 tab PO DAILY Qty: 30 RF: 0 sucralfate 1 gram tablet 1 gm PO BID 30 Days Qty: 60 RF: 0 Discharge Orders: Discharge Order (Routine); Ordered 05/28/20 Ordered By: Katie Becker Other Ambulatory Orders: Complete Blood Count w/Auto (Routine) Timeframe: 2 Days Facility: [facility] - Location: Lab - Main Lab Ordered By: Katie Becker Referrals: Jose Angel Pinto MD [Physician] - 2 weeks (FOLLOW UP AT [facility] WITH FOR THE FOLLOWING DATE OF AT 09:15 AM PLEASE HAVE LAB TO ATTENTION ; FOR LAB TEST DONE OUTPATIENT IN MAIN LAB TO ATTENTION FOR THESE RESULTS ) Discharge Diet: Advance as tolerated and GI Soft Discharge Activity: Resume usual activity Patient Instructions: Iron Supplements (By mouth), Sucralfate (By mouth), Multivitamins, Adult Formula (By mouth), Pantoprazole (By mouth), GI Bleeding, Peptic Ulcer (DC), Soft Diet (DC), GI Discharge Instructions Discharge Attestations Time Spent in Discharge Care*: greater than 30 min Quality Metrics Clinical Quality Measures During this hospital stay, did patient experience: None Coding Level of Care Code Acute Foreclosure Paralegal for Chg Fwd Diagnoses Upper GI bleed K92.2 History of peptic ulcer disease Z87.11 Acute GI bleeding K92.2
--- NOTE | 2020-05-28 12:25 | DCPLANNER ---
Pt discharged at 11:25am. Paperwork provided and signed; follow-up labs and appointment highlighted in discharge instructions. All questions answered. No complaints or s/s distress at time of discharge. IV removed without incident. Pt assisted via wheelchair to private vehicle, where her was waiting to drive her home. All personal belongings sent with patient.
== END 2020-05-28 11:30 | disposition home or self-care (01) | DRG 378 ==
LOC: ER 16:38 → MEDSURG 16:41 → ICU 05-25 16:21
PROVIDERS: Family Medicine; Internal Medicine; Admitting Provider Family Medicine; Family Provider Nurse Practitioner Family; PCP Nurse Practitioner Family; Visit Provider Student in an Organized Health Care Education/Training Program
PROC: 0DJ08ZZ Inspection of Upper Intestinal Tract, Via Natural or Artificial Opening Endoscopic (ICD-10-PCS; CPT 43235; principal; 2020-05-26 11:45)
DX: K26.0 Acute duodenal ulcer with hemorrhage (principal); I47.1 Supraventricular tachycardia; E86.1 Hypovolemia; D64.9 Anemia, unspecified; Z87.11 Personal history of peptic ulcer disease
CPT/HCPCS: 12345; 36415; 36416; 36430; 43255; 74177; 80053; 80500; 82728; 82941; 82962; 83540; 83605; 83690; 83735; 84100; 84443; 84703; 85014; 85018; 85025; 85045; 85610; 86140; 86850; 86900; 86920; 87338; 96375; 99253; 99283; C9113; G0378; J0171; J1200; J2270; J2405; J2704; J2930; J3490; J7030; J7040; J7799; P9016; Q9967

== ENCOUNTER 2020-05-30 10:06 | Outpatient (CLI) | payer OTHER, SELFPAY ==
[2020-05-30 10:21] LABS: Basophils # 0.1 10^3/uL (0.0-0.1); Basophils % 0.5 %; Eosinophils # 0.2 10^3/uL (0.0-0.8); Eosinophils % 1.3 %; Hematocrit 26.9 % (37.0-47.0); Hemoglobin 8.5 g/dL (11.5-15.3); Lymphocytes # 2.3 10^3/uL (1.5-6.5); Lymphocytes % 17.8 %; Mean Corpuscular HGB Conc 31.6 g/dL (30.0-36.0); Mean Corpuscular Hemoglobin 29.8 pg (28.0-34.0); Mean Corpuscular Volume 94.4 fL (81-99); Mean Platelet Volume 9.8 fL (7.4-10.4); Monocytes # 0.5 10^3/uL (0.2-0.9); Monocytes % 3.9 %; Neutrophils # 9.29 10^3/uL (1.8-8.0); Neutrophils % 73.3 %; Nucleated Red Blood Cells # 0.1 /100WBC; Nucleated Red Blood Cells % 0.4 %; Platelet Count 339 10^3/cmm (130-400); Red Blood Count 2.85 10^6/uL (4.1-5.3); Red Cell Distribution Width 15.9 % (12.1-15.1); White Blood Count 12.7 10^3/uL (4.5-13.0)
== END 2020-05-30 10:07 | disposition home or self-care (01) ==
LOC: LAB 10:11
PROVIDERS: PCP Internal Medicine; Visit Provider Student in an Organized Health Care Education/Training Program
DX: K92.2 Gastrointestinal hemorrhage, unspecified (principal)
CPT/HCPCS: 85025

== ENCOUNTER → 2020-06-11 09:52 | Outpatient (BNVA) | payer OTHER, SELFPAY | PROVIDERS: PCP Internal Medicine; Visit Provider Internal Medicine | DX: E11.9 Type 2 diabetes mellitus without complications (principal); K92.2 Gastrointestinal hemorrhage, unspecified; Z87.11 Personal history of peptic ulcer disease | CPT/HCPCS: 85025 ==

== ENCOUNTER → 2021-06-04 08:39 | Outpatient (BNVA) | payer OTHER, SELFPAY | PROVIDERS: PCP Internal Medicine; Visit Provider Obstetrics & Gynecology | DX: E66.9 Obesity, unspecified (principal); N63.21 Unspecified lump in the left breast, upper outer quadrant; Z12.4 Encounter for screening for malignant neoplasm of cervix | CPT/HCPCS: 83036; 83525; 84443; 88175 ==

== ENCOUNTER 2021-06-24 12:18 | Outpatient (CLI) | payer OTHER, SELFPAY ==
--- NOTE | 2021-06-24 12:30 | US_ITS ---
WS: [id number] ULTRASOUND LEFT BREAST HISTORY: N63.21 - Unspecified lump in the left breast, upper outer quadrant palpable area LEFT breast . COMPARISON: None available. TECHNIQUE: 2-D and Doppler. Ultrasound is directed to the upper outer quadrant of the LEFT breast. No mass identified. No archite ctural distortion or skin thickening. US/US breast LT limited* [id number] IMPRESSION: BI-RADS: 1-Negative FOLLOW-UP: See Report No additional follow-up by imaging.
== END 2021-06-24 12:19 | disposition home or self-care (01) ==
LOC: RAD 12:25
PROVIDERS: PCP Internal Medicine; Visit Provider Obstetrics & Gynecology
DX: N63.21 Unspecified lump in the left breast, upper outer quadrant (principal)
CPT/HCPCS: 76642

== ENCOUNTER → 2021-08-17 10:22 | Outpatient (BNVA) | payer OTHER, SELFPAY | PROVIDERS: PCP Internal Medicine; Visit Provider Obstetrics & Gynecology | DX: E16.1 Other hypoglycemia (principal) | CPT/HCPCS: 83525 ==